=== PATIENT | female | born 1940 | race African-American/Black ===

== ENCOUNTER 2021-01-24 14:52 | Inpatient (IN) | payer MEDICARE, OTHER ==
[~2021-01-24] VITALS: Ht 149.9 cm; Wt 98.2 kg
[2021-01-24 16:50] LABS: Albumin 3.4 g/dL (3.4-5.0); Anion Gap 8 (5-15); Blood Urea Nitrogen 16 mg/dL (7-18); Calcium 8.5 mg/dL (8.5-10.1); Carbon Dioxide 26 mmol/L (21-32); Chloride 101 mmol/L (98-107); GFR African American 78 mL/min; GFR Non-African American 65 mL/min; Glucose 101 mg/dL (74-106); Lipase 72 U/L (73-393); Potassium 4.1 mmol/L (3.5-5.1); Sodium 135 mmol/L (136-145)
[2021-01-24 16:54] LABS: Basophils # (auto) 0 10 ^3/uL (0-0.2); Eosinophils # (auto) 0.1 10 ^3/uL (0-0.8); Mean Corpuscular Volume 71.6 fL (80.0-100.0); Monocytes # (auto) 0.4 10 ^3/uL (0-1.3)
[2021-01-24 16:56] LABS: Alanine Aminotransferase 26 U/L (13-56); Alkaline Phosphatase 80 U/L (45-117); Aspartate Aminotransferase 13 U/L (15-37); Basophils % (auto) 0.5 % (0.0-2.0); Bilirubin, Total 0.3 mg/dL (0.2-1.0); Lymphocytes # (auto) 1.4 10 ^3/uL (0.4-5.4); Lymphocytes % (auto) 21.3 % (10.0-50.0); Mean Corpuscular Hgb Conc. 32.2 g/dL (32.0-36.0); Monocytes % (auto) 6.4 % (0.0-12.0); Neutrophils # (auto) 4.5 10 ^3/uL (1.6-8.6); Neutrophils % (auto) 70.8 % (37.0-80.0); Nucleated Red Blood Cells % 0.2 %; Platelet Count (auto) 165 10^3/uL (140-450); Red Blood Cells 4.32 10^6/uL (4.0-5.20); Red Cell Distribution Width 17.1 % (11.8-14.3); Total Protein 7.4 g/dL (6.4-8.2); White Blood Cell 6.4 10^3/uL (4.4-10.8)
[2021-01-24] MEDS ORDERED: SODIUM CHLORIDE 0.9% 1,000 ML IV ONE (17:15)
[2021-01-24] MEDS ORDERED: MORPHINE SULF INJ 2 MG/ML SYRINGE 1ML IV ONE (18:30)
[2021-01-24] MEDS ORDERED: ONDANSETRON HCL 4 MG/2 ML VIAL IV ONE (18:30)
[2021-01-24] MEDS ORDERED: HYDROmorphone HCL 2 MG/ML VL IV ONE (18:45)
[2021-01-24 21:40] LABS: Urine Bacteria FEW /hpf (None Seen); Urine Blood Negative /uL (Negative); Urine Mucus FEW (None Seen); Urine Specific Gravity 1.015 (1.001-1.035); Urine WBC 3 /hpf (0 - 5)
[2021-01-24] MEDS ORDERED: NITROGLYCERIN 0.4 MG SL TAB SL PRN (22:45)
[2021-01-24] MEDS ORDERED: ACETAMINOPHEN 325 MG TAB PO PRN (22:45)
[2021-01-24] MEDS ORDERED: hydrALAZINE HCL 20 MG/ML VL IV PRN (22:45)
[2021-01-24] MEDS ORDERED: MORPHINE SULF INJ 2 MG/ML SYRINGE 1ML IV PRN (22:45)
[2021-01-24] MEDS: SODIUM CHLORIDE 0.9% 1,000 ML IV SCH (22:45)
[2021-01-25] VITALS (7 sets, daily range): BP systolic 118–164; BP diastolic 60–85
[2021-01-25] MEDS: ONDANSETRON HCL 4 MG/2 ML VIAL IV PRN ×5 (01:51→22:57)
[2021-01-25] MEDS: HYDROmorphone HCL 2 MG/ML VL IV PRN ×4 (01:51→20:54)
[2021-01-25] MEDS ORDERED: PANC24002 PO (03:26)
[2021-01-25] MEDS ORDERED: FURO40TA4 PO (03:26)
[2021-01-25] MEDS ORDERED: HYDR50TA15 PO (03:26)
[2021-01-25] MEDS ORDERED: PANT40TA2 PO (03:26)
[2021-01-25] MEDS ORDERED: ANAS1TAB7 PO (03:26)
[2021-01-25] MEDS ORDERED: LISI20TA28 PO (03:26)
[2021-01-25] MEDS ORDERED: LEVO100T8 PO (03:26)
[2021-01-25] MEDS ORDERED: TRAM50TA2 PO (03:26)
[2021-01-25] MEDS ORDERED: METO25TA5 PO (03:26)
[2021-01-25 05:59] LABS: Basophils # (auto) 0 10 ^3/uL (0-0.2); Lymphocytes # (auto) 0.6 10 ^3/uL (0.4-5.4); Mean Corpuscular Hgb Conc. 31.7 g/dL (32.0-36.0); Monocytes # (auto) 0.3 10 ^3/uL (0-1.3); Neutrophils # (auto) 3.4 10 ^3/uL (1.6-8.6); White Blood Cell 4.4 10^3/uL (4.4-10.8)
[2021-01-25 06:02] LABS: Basophils % (auto) 0.4 % (0.0-2.0); Eosinophils # (auto) 0 10 ^3/uL (0-0.8); Hematocrit 20.5 % (36.0-46.0); Lymphocytes % (auto) 13.5 % (10.0-50.0); Mean Corpuscular Hemoglobin 23.2 pg (28.0-32.0); Mean Corpuscular Volume 73.1 fL (80.0-100.0); Monocytes % (auto) 7.9 % (0.0-12.0); Neutrophils % (auto) 77.2 % (37.0-80.0); Nucleated Red Blood Cells % 0.5 %; Platelet Count (auto) 102 10^3/uL (140-450)
[2021-01-25] MEDS: LEVOTHYROXINE SODIUM 100 MCG TAB PO SCH (06:10)
[2021-01-25 06:21] LABS: Hemoglobin 6.5 g/dL (12.2-16.2)
[2021-01-25 06:45] LABS: Alanine Aminotransferase 12 U/L (13-56); Alkaline Phosphatase 36 U/L (45-117); Anion Gap 9 (5-15); Aspartate Aminotransferase 9 U/L (15-37); BUN/Creatinine Ratio 34.5; Blood Urea Nitrogen 10 mg/dL (7-18); Carbon Dioxide 16 mmol/L (21-32); Chloride 121 mmol/L (98-107); GFR African American 286 mL/min; GFR Non-African American 236 mL/min; Glucose 65 mg/dL (74-106); Potassium 2.7 mmol/L (3.5-5.1); Sodium 146 mmol/L (136-145)
[2021-01-25 06:46] LABS: Bilirubin, Total 0.2 mg/dL (0.2-1.0); Calcium 5.1 mg/dL (8.5-10.1)
[2021-01-25 06:47] LABS: Albumin 1.7 g/dL (3.4-5.0); Total Protein 3.5 g/dL (6.4-8.2)
[2021-01-25] MEDS: LISINOPRIL 20 MG TAB PO SCH (08:55)
[2021-01-25] MEDS: ENOXAPARIN SOD 40 MG/0.4 ML SYRINGE SC SCH (08:56)
[2021-01-25] MEDS ORDERED: FAMOTIDINE (10MG/ML) 2ML VL IV SCH (10:00)
[2021-01-25] MEDS ORDERED: PANTOPRAZOLE 40 MG/10 ML VIAL INJ IV ONE (11:15)
[2021-01-25 12:03] LABS: Albumin 3.2 g/dL (3.4-5.0); Calcium 8.8 mg/dL (8.5-10.1); Potassium 4.2 mmol/L (3.5-5.1)
[2021-01-25 12:07] LABS: BUN/Creatinine Ratio 15.7; Bilirubin, Total 0.3 mg/dL (0.2-1.0); Total Protein 6.7 g/dL (6.4-8.2)
[2021-01-25 12:24] LABS: Basophils # (auto) 0 10 ^3/uL (0-0.2); Eosinophils # (auto) 0.1 10 ^3/uL (0-0.8); Hemoglobin 9.9 g/dL (12.2-16.2); White Blood Cell 5.9 10^3/uL (4.4-10.8)
[2021-01-25 12:26] LABS: Basophils % (auto) 0.8 % (0.0-2.0); Eosinophils % (auto) 1.6 % (0.0-7.0); Hematocrit 31.6 % (36.0-46.0); Lymphocytes % (auto) 16.2 % (10.0-50.0); Mean Corpuscular Hemoglobin 22.8 pg (28.0-32.0); Mean Corpuscular Hgb Conc. 31.2 g/dL (32.0-36.0); Mean Corpuscular Volume 72.9 fL (80.0-100.0); Monocytes # (auto) 0.3 10 ^3/uL (0-1.3); Monocytes % (auto) 5.8 % (0.0-12.0); Neutrophils # (auto) 4.5 10 ^3/uL (1.6-8.6); Neutrophils % (auto) 75.6 % (37.0-80.0); Nucleated Red Blood Cells % 0.2 %; Platelet Count (auto) 158 10^3/uL (140-450); Red Blood Cells 4.33 10^6/uL (4.0-5.20); Red Cell Distribution Width 17.1 % (11.8-14.3)
[2021-01-25] MEDS: SUCRALFATE 1 GM/10 ML ORAL SUSP PO SCH ×3 (12:29→21:41)
[2021-01-25] MEDS: LACTULOSE 20Gm/30ML SOLN PO PRN (15:00)
[2021-01-25] MEDS: SODIUM CHLORIDE 0.9% 1,000 ML IV SCH (16:30)
[2021-01-25] MEDS: PANTOPRAZOLE 40 MG/10 ML VIAL INJ IV SCH (21:41)
[2021-01-26] VITALS (7 sets, daily range): BP systolic 118–161; BP diastolic 48–98
[2021-01-26] MEDS: HYDROmorphone HCL 2 MG/ML VL IV PRN ×4 (02:23→21:07)
[2021-01-26] MEDS: HYDROcodone-ACET 5/325MG TAB PO PRN (05:09)
[2021-01-26] MEDS: SODIUM CHLORIDE 0.9% 1,000 ML IV SCH ×3 (05:10→08:23)
[2021-01-26 06:05] LABS: Potassium 4.6 mmol/L (3.5-5.1)
[2021-01-26 06:23] LABS: Albumin 2.9 g/dL (3.4-5.0); BUN/Creatinine Ratio 15.2; Bilirubin, Total 0.4 mg/dL (0.2-1.0); Calcium 8.1 mg/dL (8.5-10.1); Total Protein 6.5 g/dL (6.4-8.2)
[2021-01-26] MEDS: SUCRALFATE 1 GM/10 ML ORAL SUSP PO SCH ×4 (07:01→22:00)
[2021-01-26] MEDS: LACTULOSE 20Gm/30ML SOLN PO PRN (07:01)
[2021-01-26] MEDS: LEVOTHYROXINE SODIUM 100 MCG TAB PO SCH (07:01)
[2021-01-26] MEDS: LISINOPRIL 20 MG TAB PO SCH (08:23)
[2021-01-26] MEDS: PANTOPRAZOLE 40 MG/10 ML VIAL INJ IV SCH ×2 (08:24→22:00)
[2021-01-26] MEDS: ENOXAPARIN SOD 40 MG/0.4 ML SYRINGE SC SCH (11:07)
[2021-01-26 11:13] LABS: Basophils # (auto) 0 10 ^3/uL (0-0.2); Eosinophils # (auto) 0.1 10 ^3/uL (0-0.8); Eosinophils % (auto) 1.3 % (0.0-7.0); Monocytes # (auto) 0.3 10 ^3/uL (0-1.3); Neutrophils # (auto) 3.8 10 ^3/uL (1.6-8.6); White Blood Cell 4.9 10^3/uL (4.4-10.8)
[2021-01-26 11:15] LABS: Basophils % (auto) 0.5 % (0.0-2.0); Hematocrit 31.5 % (36.0-46.0); Hemoglobin 9.9 g/dL (12.2-16.2); Lymphocytes # (auto) 0.7 10 ^3/uL (0.4-5.4); Lymphocytes % (auto) 15.2 % (10.0-50.0); Mean Corpuscular Hemoglobin 22.8 pg (28.0-32.0); Mean Corpuscular Hgb Conc. 31.6 g/dL (32.0-36.0); Mean Corpuscular Volume 72.3 fL (80.0-100.0); Monocytes % (auto) 6.1 % (0.0-12.0); Neutrophils % (auto) 76.9 % (37.0-80.0); Nucleated Red Blood Cells % 0.1 %; Platelet Count (auto) 158 10^3/uL (140-450); Red Blood Cells 4.36 10^6/uL (4.0-5.20); Red Cell Distribution Width 17.3 % (11.8-14.3)
[2021-01-26 11:26] LABS: INR 1.03 (0.9-1.15)
[2021-01-27] MEDS: HYDROmorphone HCL 2 MG/ML VL IV PRN ×4 (02:23→20:11)
[2021-01-27 05:37] VITALS: BP 149/86
[2021-01-27 05:43] LABS: Basophils # (auto) 0 10 ^3/uL (0-0.2); Eosinophils # (auto) 0.1 10 ^3/uL (0-0.8); Hemoglobin 9.4 g/dL (12.2-16.2); Neutrophils # (auto) 3.3 10 ^3/uL (1.6-8.6); White Blood Cell 4.5 10^3/uL (4.4-10.8)
[2021-01-27] MEDS: HYDROcodone-ACET 5/325MG TAB PO PRN ×2 (05:46→17:09)
[2021-01-27 05:57] LABS: Basophils % (auto) 0.7 % (0.0-2.0); Eosinophils % (auto) 1.8 % (0.0-7.0); Hematocrit 29.3 % (36.0-46.0); Lymphocytes # (auto) 0.7 10 ^3/uL (0.4-5.4); Lymphocytes % (auto) 15.9 % (10.0-50.0); Mean Corpuscular Hemoglobin 23.1 pg (28.0-32.0); Mean Corpuscular Hgb Conc. 32.2 g/dL (32.0-36.0); Mean Corpuscular Volume 71.7 fL (80.0-100.0); Monocytes # (auto) 0.4 10 ^3/uL (0-1.3); Monocytes % (auto) 8.4 % (0.0-12.0); Neutrophils % (auto) 73.2 % (37.0-80.0); Nucleated Red Blood Cells % 0.3 %; Platelet Count (auto) 141 10^3/uL (140-450); Red Blood Cells 4.08 10^6/uL (4.0-5.20); Red Cell Distribution Width 16.9 % (11.8-14.3)
[2021-01-27 06:09] LABS: Potassium 3.7 mmol/L (3.5-5.1)
[2021-01-27 06:42] LABS: BUN/Creatinine Ratio 12.9; Calcium 8.2 mg/dL (8.5-10.1)
[2021-01-27] MEDS: SUCRALFATE 1 GM/10 ML ORAL SUSP PO SCH ×4 (07:00→21:00)
[2021-01-27] MEDS: LEVOTHYROXINE SODIUM 100 MCG TAB PO SCH (07:00)
[2021-01-27 08:00] VITALS: BP 116/71
[2021-01-27] MEDS ORDERED: LIDOCAINE VISCOUS 2% 15ML UD ONE (08:32)
[2021-01-27] MEDS ORDERED: SODIUM CHLORIDE LOCK 10 ML ONE (08:32)
[2021-01-27] MEDS ORDERED: diphenhdrAMINE HCL 50 MG/1 ML VL ONE (08:32)
[2021-01-27] MEDS: PANTOPRAZOLE 40 MG/10 ML VIAL INJ IV SCH ×2 (08:59→21:00)
[2021-01-27 09:00] VITALS: BP 116/71
[2021-01-27] MEDS: LISINOPRIL 20 MG TAB PO SCH ×2 (09:02→12:56)
[2021-01-27] MEDS: ENOXAPARIN SOD 40 MG/0.4 ML SYRINGE SC SCH (10:00)
[2021-01-27] MEDS: fentaNYL CITRATE 100 MCG/2 ML VL ONE ×2 (11:53→11:56)
[2021-01-27] MEDS: MIDAZOLAM HCL 5 MG/ML-1ML VIAL ONE ×2 (11:53→11:56)
[2021-01-27 17:00] VITALS: BP 139/75
[2021-01-27] MEDS: SODIUM CHLORIDE 0.9% 1,000 ML IV SCH (17:25)
[2021-01-27] MEDS: ONDANSETRON HCL 4 MG/2 ML VIAL IV PRN (20:39)
[2021-01-28] VITALS (7 sets, daily range): BP systolic 113–165; BP diastolic 61–94
[2021-01-28] MEDS: HYDROmorphone HCL 2 MG/ML VL IV PRN ×4 (02:11→20:52)
[2021-01-28] MEDS: HYDROcodone-ACET 5/325MG TAB PO PRN ×2 (05:30→18:51)
[2021-01-28] MEDS: LEVOTHYROXINE SODIUM 100 MCG TAB PO SCH (06:38)
[2021-01-28] MEDS: SUCRALFATE 1 GM/10 ML ORAL SUSP PO SCH ×4 (06:38→20:52)
[2021-01-28] MEDS: ONDANSETRON HCL 4 MG/2 ML VIAL IV PRN ×3 (08:36→20:53)
[2021-01-28] MEDS: SODIUM CHLORIDE 0.9% 1,000 ML IV SCH ×2 (10:05→17:00)
[2021-01-28] MEDS: ENOXAPARIN SOD 40 MG/0.4 ML SYRINGE SC SCH (10:30)
[2021-01-28] MEDS: LISINOPRIL 20 MG TAB PO SCH (10:31)
[2021-01-28] MEDS: PANTOPRAZOLE 40 MG/10 ML VIAL INJ IV SCH ×2 (10:31→20:52)
[2021-01-28] MEDS ORDERED: IOHEXOL 300 MG/ML 100ML BOTTLE IJ ONE (19:13)
[2021-01-29] MEDS: SODIUM CHLORIDE 0.9% 1,000 ML IV SCH ×2 (00:58→10:08)
[2021-01-29] MEDS: HYDROmorphone HCL 2 MG/ML VL IV PRN ×4 (00:59→16:53)
[2021-01-29] MEDS: HYDROcodone-ACET 5/325MG TAB PO PRN ×3 (01:00→13:58)
[2021-01-29] MEDS: ONDANSETRON HCL 4 MG/2 ML VIAL IV PRN ×3 (03:00→16:50)
[2021-01-29 05:00] VITALS: BP 126/79
[2021-01-29] MEDS: SUCRALFATE 1 GM/10 ML ORAL SUSP PO SCH ×2 (05:15→13:02)
[2021-01-29] MEDS: LEVOTHYROXINE SODIUM 100 MCG TAB PO SCH (05:15)
[2021-01-29 09:00] VITALS: BP 127/75
[2021-01-29] MEDS: LISINOPRIL 20 MG TAB PO SCH (09:43)
[2021-01-29] MEDS: PANTOPRAZOLE 40 MG/10 ML VIAL INJ IV SCH (09:44)
[2021-01-29] MEDS: ENOXAPARIN SOD 40 MG/0.4 ML SYRINGE SC SCH (09:48)
[2021-01-29 13:00] VITALS: BP 112/84
[2021-01-29 17:00] VITALS: BP 130/85
== END 2021-01-29 18:10 | disposition home health service (06) | DRG 392 ==
LOC: ER 14:52 → TELE-WESTW 22:37
PROVIDERS: ADMIT Nurse Practitioner Family; ATTEND Internal Medicine
PROC: 0DB68ZX Excision of Stomach, Via Natural or Artificial Opening Endoscopic, Diagnostic (ICD-10-PCS; principal; 2021-01-27 11:48)
DX: K29.70 Gastritis, unspecified, without bleeding (principal); I13.0 Hypertensive heart and chronic kidney disease with heart failure and stage 1 through stage 4 chronic kidney disease, or unspecified chronic kidney disease; Z68.41 Body mass index [BMI] 40.0-44.9, adult; K59.00 Constipation, unspecified; E03.9 Hypothyroidism, unspecified; D63.8 Anemia in other chronic diseases classified elsewhere; K21.9 Gastro-esophageal reflux disease without esophagitis; E66.9 Obesity, unspecified; E11.22 Type 2 diabetes mellitus with diabetic chronic kidney disease; G89.29 Other chronic pain; I50.9 Heart failure, unspecified; N18.2 Chronic kidney disease, stage 2 (mild); Z20.822 Contact with and (suspected) exposure to COVID-19; Z85.3 Personal history of malignant neoplasm of breast; Z90.10 Acquired absence of unspecified breast and nipple; Z90.710 Acquired absence of both cervix and uterus; Z88.0 Allergy status to penicillin
CPT/HCPCS: 36415; 43239; 71045; 74176; 74178; 80048; 80053; 81001; 82150; 83690; 84443; 84484; 85025; 85610; 87081; 87426; 93005; 93306; 96361; 96374; 96375; 97110; 97116; 97530; C9113; G0378; J2250; J2405; J3490